=== PATIENT | male | born 1975 | race Caucasian/White ===

== ENCOUNTER 2016-08-24 21:57 | Emergency (ER) | payer SELFPAY ==
[~2016-08-24] VITALS: Wt 87.1 kg
[~2016-08-24 21:57] MED LIST: ANAPROX DS550 MG PO; ANTIVERT/2525 MG PO; ATARAX25 MG PO; BACTRIM DS 8001 TA1 PO; CLEOCIN150 MG PO; CLINDAMYCIN HC300 MG PO; CLINDAMYCIN150 MG PO; COMPAZINE10 MG PO; DOXYCYCLINE HY100 M3 PO; DUONEB 3 MG/3 ML3 M1 INH; FLEXERIL10 MG PO; IBU-8800 MG PO; PREDNICOT20 MG PO; TRAMADOL HCL50 MG PO; TRIMOX500 MG PO; ULTRAM50 MG PO; VICODIN 5/500 505 MG PO; VICODIN ES 7501 TAB PO; ZANTAC150 MG PO
[2016-08-24] MEDS ORDERED: PREDNISONE20 M1 PO (23:52)
[2016-08-24] MEDS ORDERED: CLINDAMYCIN150 MG PO (23:52)
[2016-08-24] MEDS ORDERED: DUONEB 3 MG/3 ML3 M1 INH (23:52)
[2016-08-24] MEDS ORDERED: HYDROCODONE BIT1 T11 PO (23:57)
== END 2016-08-25 00:04 | disposition home or self-care (01) ==
LOC: ED 21:57
DX: M94.0 Chondrocostal junction syndrome [Tietze] (principal); J20.9 Acute bronchitis, unspecified; Z98.890 Other specified postprocedural states; Z88.0 Allergy status to penicillin; Z88.6 Allergy status to analgesic agent; Z88.1 Allergy status to other antibiotic agents; Z88.5 Allergy status to narcotic agent; Z88.8 Allergy status to other drugs, medicaments and biological substances

== ENCOUNTER 2017-06-21 00:21 | Emergency (ER) | payer SELFPAY ==
[~2017-06-21] VITALS: Ht 182.8 cm; Wt 88.5 kg
[~2017-06-21 00:21] MED LIST changes: +HYDROCODONE BIT1 T11 PO; +PREDNISONE20 M1 PO
[2017-06-21] MEDS ORDERED: CYCLOBENZAPRINE5 M3 PO (02:06)
== END 2017-06-21 02:20 | disposition home or self-care (01) ==
LOC: ED 00:21
DX: M62.830 Muscle spasm of back (principal); Z88.0 Allergy status to penicillin; Z88.6 Allergy status to analgesic agent; Z88.8 Allergy status to other drugs, medicaments and biological substances; Z79.899 Other long term (current) drug therapy; V49.88XA Car occupant (driver) (passenger) injured in other specified transport accidents, initial encounter; Y93.89 Activity, other specified; Y92.89 Other specified places as the place of occurrence of the external cause; Y99.8 Other external cause status

== ENCOUNTER 2020-04-05 17:06 | Emergency (ER) | payer OTHER ==
[~2020-04-05] VITALS: Ht 182.8 cm; Wt 90.7 kg
[~2020-04-05 17:06] MED LIST changes: +CYCLOBENZAPRINE5 M3 PO
[2020-04-05] MEDS ORDERED: NORCO 5-325 TA1 EACH PO (19:01)
== END 2020-04-05 19:18 | disposition home or self-care (01) ==
LOC: ED 17:06
DX: S20.211A Contusion of right front wall of thorax, initial encounter (principal); Z88.0 Allergy status to penicillin; Z88.6 Allergy status to analgesic agent; Z88.1 Allergy status to other antibiotic agents; Z91.018 Allergy to other foods; V43.52XA Car driver injured in collision with other type car in traffic accident, initial encounter; Y93.89 Activity, other specified; Y92.89 Other specified places as the place of occurrence of the external cause; Y99.8 Other external cause status

== ENCOUNTER 2020-04-06 18:23 | Emergency (ER) | payer OTHER ==
[~2020-04-06] VITALS: Ht 182.8 cm; Wt 90.7 kg
[~2020-04-06 18:23] MED LIST changes: +NORCO 5-325 TA1 EACH PO
== END 2020-04-06 18:44 | disposition home or self-care (01) ==
LOC: ED 18:23
DX: R07.81 Pleurodynia (principal); Z88.0 Allergy status to penicillin; Z88.6 Allergy status to analgesic agent; Z91.018 Allergy to other foods; Z88.8 Allergy status to other drugs, medicaments and biological substances